=== PATIENT | female | born 2000 | race Caucasian/White ===

== ENCOUNTER 2020-04-07 12:01 | Emergency (ER) | payer MEDICAID ==
[~2020-04-07] VITALS: Ht 160 cm; Wt 47.7 kg
[2020-04-07 12:21] VITALS: BP 142/91
== END 2020-04-07 12:57 | disposition home or self-care (01) ==
LOC: ER 12:03
DX: U07.1 COVID-19 (principal); R50.9 Fever, unspecified; R09.89 Other specified symptoms and signs involving the circulatory and respiratory systems
CPT/HCPCS: 36415; 87635; 99283; C9803